=== PATIENT | female | born 1955 | race Caucasian/White ===

== ENCOUNTER 2021-10-14 08:29 | Emergency (ER) | payer MEDICARE, OTHER ==
[~2021-10-14 08:29] MED LIST: CATAPRES 0.1MG0.1 MG PO; DONEPEZIL HCL10 MG PO; METOPROLOL TAR100 MG PO; NICOTINE PATCH1 EAC2 TOP; NORVASC5 MG PO; PROTONIX 40 MG40 M1 PO; SERTRALINE HCL100 MG PO; THERAGRAN M TAB1 EA PO
[2021-10-14 09:36] LABS: HEMOGLOBIN 12.6 gm/dl (12.3-15.3); RED BLOOD COUNT 4.32 M/UL (4.00-5.10); WHITE BLOOD COUNT 10.7 K/UL (4.5-11.0)
== END 2021-10-14 13:23 | disposition home or self-care (01) ==
LOC: ER1 08:29
PROVIDERS: Physician Assistant
DX: F03.90 Unspecified dementia, unspecified severity, without behavioral disturbance, psychotic disturbance, mood disturbance, and anxiety (principal); R10.819 Abdominal tenderness, unspecified site; J44.9 Chronic obstructive pulmonary disease, unspecified; I10 Essential (primary) hypertension; Z86.73 Personal history of transient ischemic attack (TIA), and cerebral infarction without residual deficits; F17.210 Nicotine dependence, cigarettes, uncomplicated; Z20.822 Contact with and (suspected) exposure to COVID-19
CPT/HCPCS: 0240U; 71045; 80053; 81001; 82550; 82553; 83605; 83690; 83735; 84484; 85025; 85610; 85730; 93005; 99285; Q9967

== ENCOUNTER 2021-10-28 23:09 | Observation (INO) | payer MEDICARE, OTHER ==
[~2021-10-28] VITALS: Ht 160 cm; Wt 56.7 kg
[2021-10-28 23:42] LABS: HEMOGLOBIN 12.3 gm/dl (12.3-15.3); RED BLOOD COUNT 4.17 M/UL (4.00-5.10); WHITE BLOOD COUNT 6.9 K/UL (4.5-11.0)
[2021-10-29] MEDS ORDERED: NORVASC10 MG PO (13:26)
[2021-10-29] MEDS ORDERED: COMBIVENT RESPIM4 GM INH (13:26)
[2021-10-29] MEDS ORDERED: PROTONIX 40 MG40 M1 PO (13:26)
[2021-10-29] MEDS ORDERED: ATORVASTATIN CA20 MG PO (13:26)
[2021-10-29] MEDS ORDERED: METOPROLOL TAR100 MG PO (13:26)
[2021-10-29] MEDS ORDERED: SERTRALINE HCL100 MG PO (13:27)
[2021-10-29] MEDS ORDERED: CLONIDINE HCL0.1 MG PO (13:28)
[2021-10-30 07:18] LABS: HEMOGLOBIN 11.2 gm/dl (12.3-15.3); RED BLOOD COUNT 3.85 M/UL (4.00-5.10); WHITE BLOOD COUNT 7.2 K/UL (4.5-11.0)
[2021-10-30 07:33] LABS: BUN/CREATININE RATIO 17 (0-10)
--- NOTE | 2021-11-03 10:20 | NUR ---
PATIENT THROWING BEDSIDE TABLE AT SITTER AND ORANGE JUICE. SCREAMING THAT SHE WANTS TO GO HOME. HARD TO REDIRECT AT THIS TIME. REFUSED MEDICATION. MD AWARE.
--- NOTE | 2021-11-03 13:07 | NUR ---
PATIENT AGITATED KITCHEN STAFF DIDNT BRING LUNCH TRAY. DIETARY STAFF SAID THAT THE TICKET PROBABLY DID NOT PRINT OUT, THEY WOULD LOOK INTO IT ONCE THEY MADE IT BACK DOWNSTAIRS. PATIENT REDIRECTED AND POPSICLE GIVEN. 15 MINS LATER PATIENT JUMPED OUT OF THE BED AND ATTEMPTED TO AMBULATE INTO CALL, CUSSING AND SWINGING ARMS. TRAY ARRIVED TO THE FLOOR. PATIENT REDIRECTED TO BED. ATIVAN GIVEN.
[2021-11-04 14:42] LABS: RED BLOOD COUNT 4.59 M/UL (4.00-5.10); WHITE BLOOD COUNT 11.7 K/UL (4.5-11.0)
[2021-11-04 14:52] LABS: HEMOGLOBIN 13.7 gm/dl (12.3-15.3)
--- NOTE | 2021-11-04 16:37 | NUR ---
PATIENT AGITATED, YELLING, FLOPPED BACK IN THE BED FROM SITTING POSITION, NOT RESPONDING TO STAFF. VITALS WERE TAKEN BLOOD PRESSURE: 178/140, PULSE:126, RESPIRATIONS: 22. DR CM NOTIFIED. PATIENT AROUSED BACK AWAKE, YELLING, AND SCREAMING STATING SHE DOES NOT WANT TO BE HERE. THE DR LIED TO HER AND TOLD HER THAT SHE COULD GO HOME. [facility] WILL COME PICK HER UP. PATIENT HARD TO REDIRECT. DR SARGENT BROUGHT TO ROOM TO ASSIST, VIVIENNE ORDERED PT REFUSED. PT GRABBING BELONGINGS IN HER BED THROWING THEM INCLUDING HER PURSE AND CALL RESENDIZ. HER BROTHER DID COME TO HER ROOM AND HE IS IN THE ROOM AT THIS TIME PT IS CALMER AT THE MOMENT.
[2021-11-05 06:42] LABS: HEMOGLOBIN 13.2 gm/dl (12.3-15.3); RED BLOOD COUNT 4.65 M/UL (4.00-5.10); WHITE BLOOD COUNT 11.2 K/UL (4.5-11.0)
[2021-11-05] MEDS ORDERED: NICOTINE PATCH1 EAC2 TOP (12:13)
[2021-11-05] MEDS ORDERED: VITAMIN B-1100 M1 PO (12:13)
[2021-11-05] MEDS ORDERED: TAB-A-VITE TA400 MC1 PO (12:13)
[2021-11-05] MEDS ORDERED: ASPIRIN81 MG PO (12:13)
== END 2021-11-05 19:06 | disposition home health service (06) ==
LOC: ER1 23:09 → MED SURG 4 10-29 12:17 → CDU 10-29 12:17 → MED SURG 4 10-29 14:34
PROVIDERS: Family Medicine; Internal Medicine; Physician Assistant; ADMIT Internal Medicine
DX: T43.621A Poisoning by amphetamines, accidental (unintentional), initial encounter (principal); T40.711A Poisoning by cannabis, accidental (unintentional), initial encounter; G92.8 Other toxic encephalopathy; F10.10 Alcohol abuse, uncomplicated; F11.129 Opioid abuse with intoxication, unspecified; F15.129 Other stimulant abuse with intoxication, unspecified; F19.129 Other psychoactive substance abuse with intoxication, unspecified; F17.210 Nicotine dependence, cigarettes, uncomplicated; G93.89 Other specified disorders of brain; F03.90 Unspecified dementia, unspecified severity, without behavioral disturbance, psychotic disturbance, mood disturbance, and anxiety; E78.5 Hyperlipidemia, unspecified; I12.9 Hypertensive chronic kidney disease with stage 1 through stage 4 chronic kidney disease, or unspecified chronic kidney disease; N18.30 Chronic kidney disease, stage 3 unspecified; Z79.899 Other long term (current) drug therapy; Z86.73 Personal history of transient ischemic attack (TIA), and cerebral infarction without residual deficits; Y90.0 Blood alcohol level of less than 20 mg/100 ml
CPT/HCPCS: 36415; 70450; 71045; 80053; 80307; 81001; 82140; 82550; 82553; 83735; 84484; 85025; 93005; 96372; 97116; 97162; 97165; 97530; 99285; G0378; G0480; J1630